=== PATIENT | female | born 1985 | race American Indian/Alaskan Native ===

== ENCOUNTER 2022-02-23 12:42 | Emergency (ER) | payer OTHER ==
[~2022-02-23] VITALS: Ht 157.5 cm; Wt 54.4 kg
[~2022-02-23 12:42] MED LIST: IBUPROFEN400 MG PO; PRENATAL TABLE1 EAC1 PO; SENNA8.6 MG PO
[2022-02-23] MEDS ORDERED: VISTARIL25 MG PO (16:56)
== END 2022-02-23 17:01 | disposition left against medical advice (07) ==
LOC: ER 12:42
DX: F41.9 Anxiety disorder, unspecified (principal); R53.81 Other malaise